=== PATIENT | male | born 1950 | race Caucasian/White ===

== ENCOUNTER 2022-02-18 15:39 | Emergency (ER) | payer OTHER ==
[~2022-02-18 15:39] MED LIST: ACETAMINOPHEN325 MG PO; ARTIFICIAL TEA1 EACH OP; ASPIRIN CHEWABL81 MG PO; BUMETANIDE2 MG PO; CLARITIN10 M2 PO; COMPAZINE 10MG10 MG PO; DOCUSATE SODIU250 MG PO; FLONASE 0.05% N16 GM; HYDROPHILIC410 GM TP; LIPITOR20 MG PO; METHYLPHENIDATE10 M6 PO; MINIPRES CAP 2 M2 MG PO; NIFEDIPINE ER60 M1 PO; OMEPRAZOLE20 MG PO; PHOSLO 667 MG667 MG PO; SALINE NOSE SPR45 ML; SEROQUEL100 MG PO; TERAZOSIN HCL10 MG PO; VITAMIN D21250 MCG PO
[2022-02-18 16:17] LABS: RED BLOOD COUNT 4.03 M/UL (4.20-5.50)
== END 2022-02-18 18:03 | disposition home or self-care (01) ==
LOC: ER1 15:39
PROVIDERS: Emergency Medicine
DX: R55 Syncope and collapse (principal); I12.9 Hypertensive chronic kidney disease with stage 1 through stage 4 chronic kidney disease, or unspecified chronic kidney disease; N18.9 Chronic kidney disease, unspecified
CPT/HCPCS: 80048; 84484; 85025; 93005; 99284